=== PATIENT | female | born 2000 | race Caucasian/White ===

== ENCOUNTER 2022-03-10 14:14 | Inpatient (IN) | payer OTHER ==
[~2022-03-10] VITALS: Ht 162.6 cm; Wt 63.5 kg
[2022-03-10] MEDS ORDERED: LAMO100T2 PO (14:22)
[2022-03-10] MEDS ORDERED: AMPH20CA3 PO (14:22)
[2022-03-10] MEDS ORDERED: ONDANSETRON 4 MG/2 ML VIAL ONE ×3 (14:28→20:31)
[2022-03-10] MEDS ORDERED: MORPHINE SULFATE 4 MG/1 ML DISP.SYRIN ONE (14:29)
[2022-03-10] MEDS ORDERED: MORPHINE SULFATE 2 MG/1 ML DISP.SYRIN IV ONE (14:30)
[2022-03-10] MEDS ORDERED: IV NORMAL SALINE 1000 ML BAG IV ONE (14:30)
[2022-03-10] MEDS ORDERED: ONDANSETRON 4 MG/2 ML VIAL IV ONE ×2 (14:30→20:30)
[2022-03-10 14:39] LABS: HEMATOCRIT 39.1 % (31.2-41.9); MEAN CORPUSCULAR HEMOGLOBIN 30.5 uug (24.7-32.8); MEAN CORPUSCULAR VOLUME 90.8 fL (75.5-95.3); PLATELET COUNT (AUTO) 260 K/uL (179-408)
[2022-03-10 14:50] LABS: BILIRUBIN,DIRECT 0.2 mg/dL (0.0-0.2); BILIRUBIN,TOTAL 1.1 mg/dL (0.2-1.0); CREATININE 0.7 mg/dL (0.6-1.3); POTASSIUM 3.9 mmol/L (3.5-5.1); TOTAL PROTEIN, SERUM 7.1 g/dL (6.4-8.2)
[2022-03-10] MEDS ORDERED: IOHEXOL 350 100 ML INFUS..BTL ONE (16:09)
[2022-03-10] MEDS ORDERED: IV NORMAL SALINE 250 ML IV ONE (16:09)
[2022-03-10] MEDS ORDERED: SWABABLE VALVE TRANSFER SET EA MC ONE (16:09)
--- NOTE | 2022-03-10 16:21 | NUR ---
EDMUND YUAN TO CALL RADIOLOGY DEPARTMENT WHEN CONTRAST CONSENT FORM FILLED OUT AND SIGNED.
--- NOTE | 2022-03-10 16:57 | NUR ---
PATIENT TO HAVE IV IN EITHER AC TO PUSH 4CCPS CONTRAST. PATIENT HAS IV IN HAND, WAITING FOR RN TO PLACE NEW IV IN PATIENT BEFORE PROCEEDING. DR NOTIFIED, RADIOLOGY NOTIFIED WHEN READY.
[2022-03-10] MEDS ORDERED: MORPHINE SULFATE 4 MG/1 ML DISP.SYRIN IV ONE (17:00)
[2022-03-10] MEDS ORDERED: diphenhydrAMINE 50 MG/1 ML VIAL IV ONE (17:30)
[2022-03-10] MEDS ORDERED: HALOPERIDOL LACTATE 5 MG/1 ML VIAL IV ONE (17:30)
[2022-03-10] MEDS ORDERED: ONDA4TAB11 PO (19:12)
--- NOTE | 2022-03-10 19:20 | NUR ---
Received report from Elvin SHAFFER.
[2022-03-10] MEDS ORDERED: HYDROMORPHONE 1 MG/1 ML DISP.SYRIN IV ONE ×2 (20:30→22:15)
[2022-03-10] MEDS ORDERED: IV NS 1000 ML 1,000 ML IV ONE ×2 (20:30→22:15)
[2022-03-10] MEDS ORDERED: HYDROMORPHONE 1 MG/1 ML DISP.SYRIN ONE ×2 (20:32→22:16)
[2022-03-10] MEDS ORDERED: CEFTRIAXONE 1 G in IV DEXTROSE 5% 50 ML IV ONE (20:45)
--- NOTE | 2022-03-10 20:55 | NUR ---
Report given to Sid SHAFFER.
[2022-03-10] MEDS ORDERED: CEFTRIAXONE /D5W 50ML IVPB **ER PYXIS IV ONE (21:26)
[2022-03-10] MEDS ORDERED: ONDANSETRON 4 MG/2 ML VIAL IV PRN (21:45)
[2022-03-10] MEDS ORDERED: MAGNESIUM HYDROXIDE 30 ML LIQUID UDC PO PRN (21:45)
[2022-03-10] MEDS ORDERED: REMEDY ESSENTIAL ZINC PASTE 113 GM TP PRN (21:45)
[2022-03-10 22:02] LABS: *BILIRUBIN,URIN NEGATIVE (NEGATIVE); *BLOOD, URINE 2+ (NEGATIVE); *CLARITY,URINE SLIGHTLY CLOUDY (CLEAR); *COLOR,URINE LIGHT YELLOW (YELLOW); *KETONES,URINE 2+ (NEGATIVE); *UROBILINOGEN,URINE 0.2 E.U./dl (NORMAL); LEUKOCYTE ESTERASE ,URINE 1+ (NEGATIVE); NITRITE, URINE POSITIVE (NEGATIVE); UGLUCOSE NEGATIVE (NEGATIVE)
[2022-03-10] MEDS ORDERED: PROCHLORPERAZINE EDISYLATE 10 MG/2 ML VIAL IV ONE (22:15)
[2022-03-10] MEDS ORDERED: PROCHLORPERAZINE EDISYLATE 10 MG/2 ML VIAL ONE (22:16)
[2022-03-10] MEDS ORDERED: CYANOCOBALAMIN 1000 MCG/ML VIAL ONE (22:18)
--- NOTE | 2022-03-11 00:05 | NUR ---
Pt. admitted to Med Surg rm 325, under care of Dr. Robertson Belongs List completed Sdi RN aware of patient's arrival to unit.
[2022-03-11 00:32] VITALS: BP 98/50
--- NOTE | 2022-03-11 00:49 | NUR ---
received a 21 yr old female from ER with an admitting diagnosis of nausea/vomiting. VSS No acute distress noted. Denies any pain nor any discomfort noted. Continent of bowel and bladder. Voiding well in the BR. last BM (03/09) Hx of anxiety, depression, connective tissue disorder. CT abdomen with contrast done. No nausea/vomiting noted. IVF's infusing.
[2022-03-11 01:06] LABS: BACTERIA,URINE MODERATE /HPF (NONE SEEN); RBC,URINE 0-3 /HPF (0-3); SQUAMOUS EPITHELIAL CELL,UR FEW /HPF (NONE SEEN)
[2022-03-11 04:00] VITALS: BP 105/55
[2022-03-11] MEDS: ACETAMINOPHEN 325 MG TABLET PO PRN ×2 (04:16→14:03)
[2022-03-11 06:18] LABS: HEMATOCRIT 32.1 % (31.2-41.9); MEAN CORPUSCULAR HEMOGLOBIN 31.3 uug (24.7-32.8); MEAN CORPUSCULAR VOLUME 90.2 fL (75.5-95.3); PLATELET COUNT (AUTO) 243 K/uL (179-408)
[2022-03-11 06:31] LABS: CREATININE 0.8 mg/dL (0.6-1.3); MAGNESIUM 1.4 mg/dL (1.8-2.4); PHOSPHOROUS 3.7 mg/dL (2.5-4.9); POTASSIUM 3.5 mmol/L (3.5-5.1)
[2022-03-11] MEDS ORDERED: KETOROLAC TROMETHAMINE 15 MG INJ IVP ONE (09:00)
[2022-03-11] MEDS ORDERED: LAMOTRIGINE 100 MG TABLET PO SCH (09:00)
[2022-03-11] MEDS ORDERED: ADDERALL 20 MG PO SCH (09:00)
[2022-03-11] MEDS ORDERED: CEFTRIAXONE 1 G in IV DEXTROSE 5% 50 ML IV SCH ×2 (09:00→21:00)
[2022-03-11] MEDS: IV NS 1000 ML 1,000 ML IV PRN ×2 (09:59→19:55)
[2022-03-11] MEDS: MAGNESIUM SULFATE/D5W 100 ML IV SCH ×4 (10:06→12:15)
[2022-03-11] MEDS: HYDROCODONE/APAP 5-325MG TABLET PO PRN ×2 (11:09→18:16)
[2022-03-11 11:12] VITALS: BP 107/51
[2022-03-11] MEDS ORDERED: PIPERACILLIN SODIUM/TAZOBACTAM 3.375 G in IV DEXTROSE 5% 50 ML IV SCH (12:00)
[2022-03-11] MEDS: KETOROLAC TROMETHAMINE 15 MG INJ IVP PRN (12:40)
[2022-03-11] MEDS: MEROPENEM 1 G in IV NORMAL SALINE 100 ML IV SCH ×2 (14:41→21:12)
[2022-03-11] MEDS ORDERED: MAGNESIUM OXIDE 400 MG TABLET PO ONE (15:00)
[2022-03-11 15:08] VITALS: BP 109/61
[2022-03-11] MEDS ORDERED: HYDROMORPHONE 1 MG/1 ML DISP.SYRIN IV PRN (15:15)
[2022-03-11] MEDS ORDERED: HYDROMORPHONE 1 MG/1 ML DISP.SYRIN IV ONE (15:30)
[2022-03-11] MEDS ORDERED: IV NS 1000 ML 1,000 ML IV ONE (18:00)
[2022-03-11 20:00] VITALS: BP 111/66
[2022-03-11] MEDS: HYDROMORPHONE 1 MG/1 ML DISP.SYRIN IV PRN (20:18)
[2022-03-11] MEDS: NYSTATIN SUSPENSION 5 ML LIQUID UDC PO SCH (21:21)
[2022-03-12] MEDS: HYDROMORPHONE 1 MG/1 ML DISP.SYRIN IV PRN ×6 (00:19→21:49)
[2022-03-12] MEDS: ONDANSETRON 4 MG/2 ML VIAL IV PRN ×5 (00:30→21:55)
[2022-03-12 04:00] VITALS: BP 110/67
[2022-03-12] MEDS: ACETAMINOPHEN 325 MG TABLET PO PRN ×3 (04:53→23:18)
[2022-03-12] MEDS: MEROPENEM 1 G in IV NORMAL SALINE 100 ML IV SCH ×3 (05:03→21:59)
[2022-03-12] MEDS: IV NS 1000 ML 1,000 ML IV PRN ×2 (05:27→17:48)
[2022-03-12 06:21] LABS: HEMATOCRIT 30.3 % (31.2-41.9); MEAN CORPUSCULAR HEMOGLOBIN 30.5 uug (24.7-32.8); MEAN CORPUSCULAR VOLUME 91.4 fL (75.5-95.3); PLATELET COUNT (AUTO) 182 K/uL (179-408)
[2022-03-12 06:48] LABS: CREATININE 0.9 mg/dL (0.6-1.3); MAGNESIUM 2.2 mg/dL (1.8-2.4); PHOSPHOROUS 2.3 mg/dL (2.5-4.9); POTASSIUM 3.9 mmol/L (3.5-5.1)
--- NOTE | 2022-03-12 07:49 | NUR ---
Sleeping, appears comfortable. IVF infusing
[2022-03-12] MEDS: NYSTATIN SUSPENSION 5 ML LIQUID UDC PO SCH ×4 (08:41→20:46)
[2022-03-12] MEDS: LAMOTRIGINE 25 MG TABLET PO SCH (08:41)
[2022-03-12] MEDS: KETOROLAC TROMETHAMINE 15 MG INJ IVP PRN (10:12)
[2022-03-12 10:31] VITALS: BP 126/83
[2022-03-12 11:19] LABS: BILIRUBIN,DIRECT 0.3 mg/dL (0.0-0.2); BILIRUBIN,TOTAL 0.6 mg/dL (0.2-1.0); TOTAL PROTEIN, SERUM 5.9 g/dL (6.4-8.2)
[2022-03-12 11:45] VITALS: BP 121/79
--- NOTE | 2022-03-12 12:00 | NUR ---
With chills, temp 100.2, Tylenol po given.
[2022-03-12] MEDS ORDERED: NEUTRA PHOS PACKET PO ONE (16:00)
[2022-03-12 16:36] VITALS: BP 105/60
--- NOTE | 2022-03-12 18:34 | NUR ---
With chills and Temp 100.9 and vomiting to large emesis. Ibuprofen with cooling measures given. Zofran given. NS 500 bolus to be given. Intermittent flank pain medicated with Dilaudid 0.5 mg.
[2022-03-12] MEDS ORDERED: IV NORMAL SALINE 500 ML IV ONE (18:45)
[2022-03-12] MEDS: IBUPROFEN 400 MG TABLET PO PRN (18:53)
--- NOTE | 2022-03-12 19:00 | NUR ---
Midline placement followed up multiple times but not available, possible schedule tomorrow am
[2022-03-12 19:59] VITALS: BP 110/69
[2022-03-13] MEDS: HYDROMORPHONE 1 MG/1 ML DISP.SYRIN IV PRN ×4 (03:41→21:41)
[2022-03-13 04:00] VITALS: BP 119/77
[2022-03-13] MEDS: MEROPENEM 1 G in IV NORMAL SALINE 100 ML IV SCH ×3 (05:58→21:46)
[2022-03-13] MEDS: ONDANSETRON 4 MG/2 ML VIAL IV PRN ×3 (06:29→17:56)
[2022-03-13] MEDS: ACETAMINOPHEN 325 MG TABLET PO PRN (06:39)
[2022-03-13] MEDS: IV NS 1000 ML 1,000 ML IV PRN (08:16)
--- NOTE | 2022-03-13 08:20 | NUR ---
pt complain of pain. Dilaudid 0.5mg prn was given. will reassess in 30mins.
[2022-03-13 08:40] LABS: CREATININE 0.9 mg/dL (0.6-1.3); POTASSIUM 3.7 mmol/L (3.5-5.1)
[2022-03-13 08:42] LABS: HEMATOCRIT 36.8 % (31.2-41.9); MEAN CORPUSCULAR HEMOGLOBIN 31.3 uug (24.7-32.8); MEAN CORPUSCULAR VOLUME 90.9 fL (75.5-95.3); PLATELET COUNT (AUTO) 173 K/uL (179-408)
[2022-03-13] MEDS: LAMOTRIGINE 25 MG TABLET PO SCH (08:58)
[2022-03-13] MEDS: NYSTATIN SUSPENSION 5 ML LIQUID UDC PO SCH ×4 (08:58→21:01)
--- NOTE | 2022-03-13 09:30 | NUR ---
pt was seen by . md ordered to give po pain med first before iv pain meds.
--- NOTE | 2022-03-13 10:15 | NUR ---
pt is complaining of pain and asking for pain meds. discuss with pt that i just gave Dilaudid 2hrs ago but pt still insist to have another meds. notified. okayed to give [place] 5mg-325mg prn.
[2022-03-13] MEDS: HYDROCODONE/APAP 5-325MG TABLET PO PRN ×2 (10:33→17:36)
[2022-03-13 11:58] VITALS: BP 145/71
--- NOTE | 2022-03-13 12:10 | NUR ---
pt is complaining of pain. pt asking for pain meds. md notified. okayed to give dilauded.
[2022-03-13 16:11] VITALS: BP 119/84
[2022-03-13 20:00] VITALS: BP 126/87
[2022-03-14] MEDS: HYDROCODONE/APAP 5-325MG TABLET PO PRN ×3 (01:38→22:36)
[2022-03-14 04:00] VITALS: BP 119/63
[2022-03-14] MEDS: HYDROMORPHONE 1 MG/1 ML DISP.SYRIN IV PRN (04:57)
[2022-03-14] MEDS: IV NS 1000 ML 1,000 ML IV PRN (06:01)
[2022-03-14] MEDS: MEROPENEM 1 G in IV NORMAL SALINE 100 ML IV SCH ×3 (06:02→22:35)
[2022-03-14 07:21] LABS: HEMATOCRIT 30.6 % (31.2-41.9); MEAN CORPUSCULAR VOLUME 89.6 fL (75.5-95.3); PLATELET COUNT (AUTO) 195 K/uL (179-408)
[2022-03-14 07:23] LABS: CREATININE 0.8 mg/dL (0.6-1.3); MAGNESIUM 1.6 mg/dL (1.8-2.4); PHOSPHOROUS 2.5 mg/dL (2.5-4.9); POTASSIUM 3.7 mmol/L (3.5-5.1)
[2022-03-14 09:01] LABS: EOSINOPHILS % (MANUAL) 1 % (0-8); LYMPHOCYTES % (MANUAL) 11 % (20-40); MONOCYTES % (MANUAL) 11 % (2-10); NEUTROPHILS % (MANUAL) 77 % (42-75)
[2022-03-14] MEDS: LAMOTRIGINE 25 MG TABLET PO SCH (09:26)
[2022-03-14] MEDS: MAGNESIUM SULFATE/D5W 100 ML IV SCH ×2 (09:26→10:51)
[2022-03-14] MEDS: NYSTATIN SUSPENSION 5 ML LIQUID UDC PO SCH ×4 (09:26→21:36)
[2022-03-14] MEDS: ONDANSETRON 4 MG/2 ML VIAL IV PRN (12:24)
[2022-03-14] MEDS: KETOROLAC TROMETHAMINE 15 MG INJ IVP PRN ×2 (13:08→20:31)
[2022-03-14] MEDS: IBUPROFEN 400 MG TABLET PO PRN (15:46)
[2022-03-14 16:05] VITALS: BP 127/98
[2022-03-14 20:00] VITALS: BP 139/91
[2022-03-15] MEDS: IV NS 1000 ML 1,000 ML IV PRN (01:49)
[2022-03-15 04:00] VITALS: BP 115/91
[2022-03-15] MEDS: KETOROLAC TROMETHAMINE 15 MG INJ IVP PRN (04:32)
[2022-03-15] MEDS: MEROPENEM 1 G in IV NORMAL SALINE 100 ML IV SCH ×2 (05:29→14:00)
[2022-03-15 06:56] LABS: HEMATOCRIT 30.9 % (31.2-41.9); MEAN CORPUSCULAR HEMOGLOBIN 30.6 uug (24.7-32.8); MEAN CORPUSCULAR VOLUME 89.5 fL (75.5-95.3); PLATELET COUNT (AUTO) 193 K/uL (179-408)
[2022-03-15 06:58] LABS: CREATININE 0.6 mg/dL (0.6-1.3); MAGNESIUM 1.9 mg/dL (1.8-2.4); PHOSPHOROUS 3.4 mg/dL (2.5-4.9); POTASSIUM 4.3 mmol/L (3.5-5.1)
[2022-03-15] MEDS: HYDROCODONE/APAP 5-325MG TABLET PO PRN ×2 (07:46→07:56)
[2022-03-15] MEDS: NYSTATIN SUSPENSION 5 ML LIQUID UDC PO SCH ×2 (08:42→13:31)
[2022-03-15] MEDS: LAMOTRIGINE 25 MG TABLET PO SCH (08:43)
[2022-03-15 11:27] VITALS: BP 166/100
[2022-03-15] MEDS ORDERED: ENSURE ENLIVE (VAN) 240 ML LIQUID PO SCH (14:30)
--- NOTE | 2022-03-15 14:46 | NUR ---
PATIENT IS BEING DISCHARGED,HAS A DISCHARGE ORDER BUT THE DIRECTOR ORGANIZATIONAL STATED THAT SHE IS WAITING FOR THE SENSITIVITIES IN ORDER TO DECIDE WHICH ATB TO SEND HER HOME WITH PATIENT REFUSING TO BE CONNECTED TO THE IV ATB WANTS TO GO HOME CALLED THE LAB AND THEY ARE TRYING TO OBTAIN THE SENSITIVITY RESULTS FROM AURYNELLA PATIENT AWARE
[2022-03-15 16:36] VITALS: BP 147/111
--- NOTE | 2022-03-15 16:42 | NUR ---
CALLED AND SPOKE WITH MARIANA RE DISCHARGE ANTIBIOTICS AND SHE STATED TO SEND PATIENT HOME ON CIPRO 500 MG BID FOR 7 DAYS AND WHEN THE SENSITIVITY IS READY AND PATIENT IS RESISTANT WILL THEN CALL THE PATIENT AND REORDER IT FOR HER.CEASAR NOTIFIED AND SHE STATED THAT SHE WILL ORDER THE CIPRO ELECTRONICALLY PATIENT AWARE.
--- NOTE | 2022-03-15 17:00 | NUR ---
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
[2022-03-15] MEDS ORDERED: KETO10TA2 PO (17:37)
[2022-03-15] MEDS ORDERED: CIPR-262 PO (17:37)
[2022-03-16] MEDS ORDERED: CEPH500T PO (20:13)
[2022-03-19] MEDS ORDERED: LAMOTRIGINE 25 MG TABLET PO SCH (09:00)
== END 2022-03-15 17:00 | disposition home or self-care (01) | DRG 720 ==
LOC: ER 14:14 → MEDSURG3 19:16
PROVIDERS: ADMIT Nurse Practitioner Acute Care; ATTEND Nurse Practitioner Acute Care
DX: A41.9 Sepsis, unspecified organism (principal); B37.0 Candidal stomatitis; F32.A Depression, unspecified; G89.4 Chronic pain syndrome; Z88.0 Allergy status to penicillin; N13.6 Pyonephrosis; B96.20 Unspecified Escherichia coli [E. coli] as the cause of diseases classified elsewhere; N10 Acute pyelonephritis; Q79.60 Ehlers-Danlos syndrome, unspecified; F41.9 Anxiety disorder, unspecified
CPT/HCPCS: 36415; 70030-TC; 71045; 72192; 83690; 83735; 84100; 85025; 87040; 87077; 87086; 93005; G0378; J0696; J0780; J1170; J1885; J2185; J2270; J2405; J3420; J3475; J7040; Q9967